=== PATIENT | female | born 1970 | race Caucasian/White ===

== ENCOUNTER 2018-10-18 10:10 | Emergency (ER) | payer BC ==
[2018-10-18] MEDS ORDERED: diPHENhydraMINE IV* 50 MG/ML 1 ml VIAL (BENADRYL) IV ONE (10:18)
[2018-10-18] MEDS ORDERED: Famotidine IV* 10 MG/ML 2 ML (20 mg) IV SLOW PU ONE (10:18)
[2018-10-18] MEDS ORDERED: NS 0.9% 1000 ML** 1,000 ML IV ONE (10:18)
[2018-10-18] MEDS ORDERED: methylPREDNISolone 125 MG* 2 ML VIAL IV ONE (10:18)
--- NOTE | 2018-10-18 10:23 | UC ---
Allergic Reaction HPI - HPI Summary HPI Summary: Patient is a 47-year-old female, prior history of anaphylaxis to bee stings, here with a possible bee sting. Patient was stung 20 minutes prior to arrival by a bee or a wasp. Patient stung on her left chest wall. Since then, patient' s skin flushing and itchiness to her left eye. Patient has no sensation of throat closing, shortness of breath, vomiting, diarrhea, abdominal pain, nausea , altered level of consciousness. Patient has an EpiPen and did not use it. Medications reviewed - History of Current Complaint Stated Complaint: BEE STING ALLERIGIC Time Seen by Provider: 10/18/18 10:13 Hx Obtained From: Patient Onset/Duration: Sudden Onset Severity Initially: Mild Severity Currently: Mild - Allergies/Home Medications Allergies/Adverse Reactions: Allergies Allergy/AdvReac Type Severity Reaction Status Date / Time bee venom protein (honey bee) Allergy Hives/Diff. Verified 10/18/18 10:25 Breathing/I tching PMH/Surg Hx/FS Hx/Imm Hx Previously Healthy: Yes - Surgical History Surgical History: None - Family History Known Family History: Positive: Non-Contributory - Social History Alcohol Use: Rare Substance Use Type: None Smoking Status (MU): Never Smoked Tobacco Review of Systems All Other Systems Reviewed And Are Negative: Yes Constitutional: Positive: Negative Skin: Positive: Rash Eyes: Negative: Blurred Vision, Diplopia ENT: Positive: Negative Respiratory: Negative: Shortness Of Breath, Cough Cardiovascular: Negative: Palpitations, Chest Pain Gastrointestinal: Negative: Abdominal Pain, Vomiting, Diarrhea, Nausea Genitourinary: Positive: Negative Motor: Positive: Negative Neurovascular: Positive: Negative Musculoskeletal: Positive: Negative Neurological: Positive: Negative Physical Exam - Summary Physical Exam Summary: Vital Signs Reviewed: Yes A+Ox3, no distress Eyes: Conjunctiva Clear, SANDRITA. EOM intact and full ENT: Hearing grossly normal TM x 2 clear, mmoist, uvula midline, no exudate, no erythema. No posterior edema Neck: Positive: Supple. No stridor Respiratory: Positive: No respiratory distress, No accessory muscle use + CTA throughout no w/r Cardiovascular: RRR nl s1, s2 no m/r CBT <2 sec abd soft + BS nt/nd no guarding, no distension Musculoskeletal Exam: [id number] x 4 without difficulty Strength Intact, ROM Intact Neurological: Positive: Alert, + sensation throughout Psychological: Positive: Normal Response To Family Skin: Positive: Flushing to the back and anterior chest wall. 2 hives present on the lower back. Triage Information Reviewed: Yes Re-Evaluation - Re-Evaluation First Eval Re-Evaluation Time: 10:53 - patient's skin rash and itching are improving. Patient starting to feel a little bit of acid reflux but no nausea or vomiting. We will continue to monitor Second Eval Re-Evaluation Time: 12:10 - Patient feeling better and ready for discharge Allergic Reaction Course/Dx - Course Course Of Treatment: Patient is here with an allergic reaction secondary to a insect envenomation. Patient has a known ineffective reaction to bee venom, but was not sure if a bee stung her. Upon arrival, patient did not meet the definition of anaphylaxis but did show signs of allergic reaction. Patient had immediate IV X obtained and was given IV fluids, Pepcid, Benadryl, Solu-Medrol. Patient was monitored until her symptoms resolved. Patient was discharged with a prescription for an EpiPen. Patient's blood pressure was likely due to a pain reaction from her ED stay. Patient was instructed to follow-up with her PCP for recheck. - Differential Dx/Diagnosis Differential Diagnosis/HQI/PQRI: Anaphylaxis, Angioedema, Bronchospasm, Local Allergic Reaction, Urticaria Provider Diagnosis: Allergic reaction, Insect sting, Urticaria Discharge - Sign-Out/Discharge Documenting (check all that apply): Patient Departure All imaging exams completed and their final reports reviewed: No Studies - Discharge Plan Condition: Improved Disposition: HOME Prescriptions: EPINEPHrine [Epipen 2-Jimmie] 0.3 mg IM ONCE PRN #1 inj PRN Reason: Allergy Symptoms Patient Education Materials: Anaphylaxis (ED) Referrals: Nessa Thrasher MD [Primary Care Provider] - Additional Instructions: Please use her EpiPen right away if he starts feeling like her throat is closing or having trouble breathing after a bee sting After using the EpiPen, call 911 Please return if you're having worsening symptoms. - Billing Disposition and Condition Condition: IMPROVED Disposition: Home
[2018-10-18] MEDS ORDERED: Al Hydrox/Mg Hydrox/Simet LIQ* 30 ML UDC PO ONE (11:31)
[2018-10-18 11:57] VITALS: BP 111/67
== END 2018-10-18 12:28 | disposition home or self-care (01) ==
LOC: UCEAST 10:10
DX: T63.441A Toxic effect of venom of bees, accidental (unintentional), initial encounter (principal); Y92.9 Unspecified place or not applicable; L50.9 Urticaria, unspecified
CPT/HCPCS: 96360; 96374; 96375; 99212; A9270-GY; G0463; J1200; J2930